=== PATIENT | female | born 1975 | race African-American/Black ===

== ENCOUNTER 2018-09-24 11:39 | Inpatient (IN) | payer OTHER ==
[~2018-09-24] VITALS: Ht 162.6 cm; Wt 87.1 kg
[~2018-09-24 11:39] MED LIST: FOLI0.4T2 PO; IRON-15 PO; PREN-142 PO
[2018-09-24] MEDS ORDERED: SODIUM CHLORIDE 0.9% 1,000 ML IV ONE (15:40)
[2018-09-24] MEDS ORDERED: KETOROLAC 30MG/ML VIAL IV STA (15:40)
[2018-09-24 17:01] LABS: BASOPHILS % 0.5 % (0.0-2.0); EOSINOPHILS % 0.5 % (0.0-5.0); HEMATOCRIT. 37.2 % (36.0-48.0); MEAN CORPUSCULAR HEMOGLOBIN 26.6 pg (28.0-32.0); MEAN CORPUSCULAR VOLUME 82.4 fL (81.0-99.0); MEAN PLATELET VOLUME 8.5 fl (7.4-10.4); MONOCYTES % 8.4 % (2.0-8.0); NEUTROPHILS % 57.6 % (40.0-76.0); PLATELET 349 x1000/uL (130-400); RED BLOOD CELL COUNT 4.51 mill/uL (4.2-5.4); RED CELL DISTRIBUTION WIDTH 14.3 % (11.6-14.6)
[2018-09-24 17:04] LABS: CHLORIDE 95 mEq/L (98-107)
[2018-09-24 17:18] LABS: PROTHROMBIN TIME 10.2 sec (9.1-11.1)
[2018-09-24] MEDS ORDERED: PIPERACILLIN/TAZOBACTAM 3.375GM/50ML PREMIX IV ONE (17:30)
[2018-09-24] MEDS ORDERED: VANCOMYCIN 1 G PREMIX 200 ML IV SCH (17:30)
[2018-09-24] MEDS ORDERED: PIPERACILLIN/TAZ 3.375G PREMIX 50 ML IV SCH ×2 (18:00→20:00)
[2018-09-24 19:52] LABS: BASOPHILS % 0.7 % (0.0-2.0); EOSINOPHILS % 0.5 % (0.0-5.0); HEMATOCRIT. 37.3 % (36.0-48.0); HEMOGLOBIN. 12.1 g/dL (12.0-16.0); LYMPHOCYTES % 33.3 % (20.0-50.0); MEAN CORPUSCULAR HEMOGLOBIN 26.7 pg (28.0-32.0); MEAN CORPUSCULAR VOLUME 82.1 fL (81.0-99.0); MONOCYTES % 8.2 % (2.0-8.0); NEUTROPHILS % 57.3 % (40.0-76.0); PLATELET 364 x1000/uL (130-400); RED BLOOD CELL COUNT 4.54 mill/uL (4.2-5.4); RED CELL DISTRIBUTION WIDTH 14.4 % (11.6-14.6)
[2018-09-24 20:00] VITALS: BP 150/92
[2018-09-24] MEDS ORDERED: IPRATROPIUM/ALBUTEROL 0.5-3(2.5)MG/3ML NEB INH PRN (20:00)
[2018-09-24] MEDS ORDERED: DOCUSATE SODIUM 100MG CAPSULE PO PRN (20:00)
[2018-09-24] MEDS ORDERED: MAGNESIUM/ALUMINUM HYDROXIDE/SIMETHICONE 30ML UDC PO PRN (20:00)
[2018-09-24] MEDS ORDERED: CLONIDINE 0.1MG TABLET PO PRN (20:00)
[2018-09-24 20:23] LABS: CHLORIDE 94 mEq/L (98-107)
[2018-09-24] MEDS ORDERED: INSULIN GLARGINE UD 100 UNITS/ML SYR SUBCUT SCH (22:00)
[2018-09-24 22:09] LABS: CLARITY URINE TURBID (CLEAR); COLOR URINE YELLOW (YELLOW); KETONES URINE NEGATIVE (NEGATIVE); LEUKOCYTE ESTERASE URINE 1+ (NEGATIVE); NITRITE URINE NEGATIVE (NEGATIVE); OCCULT BLOOD URINE 3+ (NEGATIVE); PROTEIN URINE TRACE (NEGATIVE); SPECIFIC GRAVITY URINE 1.045 (1.005-1.030); UROBILINOGEN URINE 0.2 E.U./dL (0.2-1.0)
[2018-09-24 22:25] LABS: *AMPHETAMINES SCREEN URINE NEGATIVE (NEGATIVE)
[2018-09-24 22:26] LABS: *BARBITURATES SCREEN URINE NEGATIVE (NEGATIVE); *BENZODIAZEPINES SCREEN URINE NEGATIVE (NEGATIVE); *COCAINE SCREEN URINE NEGATIVE (NEGATIVE); CANNABINOID URINE SCREEN NEGATIVE (NEGATIVE); METHADONE URINE SCREEN NEGATIVE (NEGATIVE); OPIATES URINE SCREEN NEGATIVE (NEGATIVE); PHENCYCLIDINE URINE SCREEN NEGATIVE (NEGATIVE)
[2018-09-24] MEDS ORDERED: DEXTROSE 50% WATER 50ML SYRINGE IV PRN (23:45)
[2018-09-25] VITALS: BP 150/92
[2018-09-25] MEDS: SODIUM CHLORIDE 0.9% 1,000 ML IV SCH ×2 (00:24→12:21)
[2018-09-25] MEDS ORDERED: INSULIN GLARGINE UD 100 UNITS/ML SYR SUBCUT SCH (01:00)
[2018-09-25] MEDS: PIPERACILLIN/TAZ 3.375G PREMIX 50 ML IV SCH ×3 (02:26→17:41)
[2018-09-25] MEDS: VANCOMYCIN 750 MG PREMIX 150 ML IV SCH ×3 (03:32→19:09)
[2018-09-25] MEDS: HYDROCODONE/ACETAMINOPHEN 5/325MG TABLET PO PRN ×3 (03:32→21:02)
[2018-09-25] MEDS: ONDANSETRON HCL 4MG/2ML INJ IV PRN (03:32)
[2018-09-25 04:00] VITALS: BP 118/75
[2018-09-25] MEDS: BLOOD SUGAR DIAGNOSTIC STRIP TEST SCH ×4 (06:24→21:02)
[2018-09-25] MEDS: INSULIN LISPRO 100 UNITS/ML SUBCUT SCH ×4 (06:38→21:28)
[2018-09-25 08:00] VITALS: BP 105/63
[2018-09-25] MEDS: ENOXAPARIN 40MG/0.4ML SYR SUBCUT SCH (09:02)
[2018-09-25] MEDS ORDERED: LIDOCAINE HCL 1% 20ML VIAL (Pyxis) INJ INFIL SCH (09:30)
[2018-09-25] MEDS ORDERED: LIDOCAINE HCL 1% 20ML VIAL (Pyxis) INJ ONE (11:59)
[2018-09-25 12:00] VITALS: BP 91/60
[2018-09-25 16:00] VITALS: BP 106/73
[2018-09-25] MEDS ORDERED: ACETAMINOPHEN 325MG TABLET PO PRN (17:15)
[2018-09-25 20:00] VITALS: BP 96/56
[2018-09-25] MEDS: INSULIN GLARGINE UD 100 UNITS/ML SYR SUBCUT SCH (21:28)
[2018-09-26] VITALS: BP 99/63
[2018-09-26] MEDS: PIPERACILLIN/TAZ 3.375G PREMIX 50 ML IV SCH ×3 (02:37→18:07)
[2018-09-26] MEDS: VANCOMYCIN 750 MG PREMIX 150 ML IV SCH ×2 (03:29→11:31)
[2018-09-26 04:00] VITALS: BP 100/66
[2018-09-26] MEDS: BLOOD SUGAR DIAGNOSTIC STRIP TEST SCH ×4 (06:24→21:31)
[2018-09-26] MEDS: INSULIN LISPRO 100 UNITS/ML SUBCUT SCH ×4 (06:53→21:36)
[2018-09-26 07:45] LABS: BASOPHILS % 0.4 % (0.0-2.0); EOSINOPHILS % 0.8 % (0.0-5.0); HEMATOCRIT. 32.6 % (36.0-48.0); HEMOGLOBIN. 10.6 g/dL (12.0-16.0); LYMPHOCYTES % 40.4 % (20.0-50.0); MEAN CORPUSCULAR HEMOGLOBIN 26.6 pg (28.0-32.0); MEAN CORPUSCULAR VOLUME 81.7 fL (81.0-99.0); MEAN PLATELET VOLUME 8.3 fl (7.4-10.4); MONOCYTES % 7.3 % (2.0-8.0); NEUTROPHILS % 51.1 % (40.0-76.0); PLATELET 290 x1000/uL (130-400); RED CELL DISTRIBUTION WIDTH 14.4 % (11.6-14.6)
[2018-09-26 08:00] VITALS: BP 138/92
[2018-09-26 08:26] LABS: CHLORIDE 99 mEq/L (98-107)
[2018-09-26] MEDS: ENOXAPARIN 40MG/0.4ML SYR SUBCUT SCH (08:36)
[2018-09-26] MEDS: INSULIN GLARGINE UD 100 UNITS/ML SYR SUBCUT SCH ×2 (10:00→21:35)
[2018-09-26 12:00] VITALS: BP 102/72
[2018-09-26] MEDS ORDERED: GENTAMICIN SULF 40MG/ML 2ML VIAL ONE (14:19)
[2018-09-26] MEDS: SODIUM CHLORIDE 0.9% 1,000 ML IV SCH (14:19)
[2018-09-26] MEDS ORDERED: BACITRACIN 15GM TUBE TOP ONE (14:19)
[2018-09-26] MEDS ORDERED: LIDOCAINE HCL 1% 20ML VIAL (Pyxis) INJ ONE (14:19)
[2018-09-26] MEDS ORDERED: BUPIVACAINE HCL/PF 0.25% (2.5MG/ML) 10ML ONE (14:20)
[2018-09-26] MEDS ORDERED: BACITRACIN 50,000 UNITS/VIAL ONE (14:20)
[2018-09-26] MEDS ORDERED: NORMAL SALINE 0.9% 10 ML SYR ONE (14:20)
[2018-09-26 16:00] VITALS: BP 99/59
[2018-09-26] MEDS: HYDROCODONE/ACETAMINOPHEN 5/325MG TABLET PO PRN (16:26)
[2018-09-26 20:00] VITALS: BP 119/83
[2018-09-26] MEDS ORDERED: VANCOMYCIN 1250MG in DEXTROSE 5% WATER 250ML IV SCH (20:00)
[2018-09-27] VITALS: BP 120/81
[2018-09-27] MEDS: SODIUM CHLORIDE 0.9% 1,000 ML IV SCH ×2 (02:59→14:35)
[2018-09-27] MEDS: HYDROCODONE/ACETAMINOPHEN 5/325MG TABLET PO PRN ×2 (03:00→16:46)
[2018-09-27] MEDS: PIPERACILLIN/TAZ 3.375G PREMIX 50 ML IV SCH ×3 (03:00→17:29)
[2018-09-27 04:00] VITALS: BP 133/83
[2018-09-27] MEDS: VANCOMYCIN 1250MG in DEXTROSE 5% WATER 250ML IV SCH ×3 (06:13→21:21)
[2018-09-27] MEDS: BLOOD SUGAR DIAGNOSTIC STRIP TEST SCH ×4 (06:14→20:14)
[2018-09-27 06:29] LABS: BASOPHILS % 0.5 % (0.0-2.0); EOSINOPHILS % 1.2 % (0.0-5.0); HEMATOCRIT. 31.1 % (36.0-48.0); HEMOGLOBIN. 10.1 g/dL (12.0-16.0); LYMPHOCYTES % 36.4 % (20.0-50.0); MEAN CORPUSCULAR HEMOGLOBIN 26.7 pg (28.0-32.0); MEAN CORPUSCULAR VOLUME 81.9 fL (81.0-99.0); MEAN PLATELET VOLUME 8.4 fl (7.4-10.4); MONOCYTES % 8.7 % (2.0-8.0); NEUTROPHILS % 53.2 % (40.0-76.0); PLATELET 260 x1000/uL (130-400); RED CELL DISTRIBUTION WIDTH 14.3 % (11.6-14.6)
[2018-09-27] MEDS: INSULIN LISPRO 100 UNITS/ML SUBCUT SCH ×4 (06:44→20:18)
[2018-09-27 06:57] LABS: CHLORIDE 99 mEq/L (98-107)
[2018-09-27 08:00] VITALS: BP 109/77
[2018-09-27] MEDS: ENOXAPARIN 40MG/0.4ML SYR SUBCUT SCH (08:29)
[2018-09-27] MEDS: INSULIN GLARGINE UD 100 UNITS/ML SYR SUBCUT SCH ×2 (09:26→21:16)
[2018-09-27] MEDS: ONDANSETRON HCL 4MG/2ML INJ IV PRN ×2 (11:03→20:06)
[2018-09-27 12:00] VITALS: BP 114/78
[2018-09-27 16:00] VITALS: BP 125/86
[2018-09-27 20:00] VITALS: BP 117/78
[2018-09-28] VITALS: BP 107/70
[2018-09-28] MEDS: HYDROCODONE/ACETAMINOPHEN 5/325MG TABLET PO PRN ×2 (01:17→21:14)
[2018-09-28] MEDS: PIPERACILLIN/TAZ 3.375G PREMIX 50 ML IV SCH ×2 (02:09→09:20)
[2018-09-28] MEDS: SODIUM CHLORIDE 0.9% 1,000 ML IV SCH ×2 (03:44→16:40)
[2018-09-28 04:00] VITALS: BP 109/75
[2018-09-28] MEDS: VANCOMYCIN 1250MG in DEXTROSE 5% WATER 250ML IV SCH ×2 (05:34→13:05)
[2018-09-28] MEDS: BLOOD SUGAR DIAGNOSTIC STRIP TEST SCH ×4 (06:28→20:43)
[2018-09-28] MEDS: INSULIN LISPRO 100 UNITS/ML SUBCUT SCH ×5 (06:56→20:43)
[2018-09-28 07:00] VITALS: BP 112/75
[2018-09-28 09:08] LABS: CHLORIDE 99 mEq/L (98-107)
[2018-09-28] MEDS: ONDANSETRON HCL 4MG/2ML INJ IV PRN (09:20)
[2018-09-28] MEDS: ENOXAPARIN 40MG/0.4ML SYR SUBCUT SCH (09:21)
[2018-09-28] MEDS: INSULIN GLARGINE UD 100 UNITS/ML SYR SUBCUT SCH ×2 (09:28→21:05)
[2018-09-28 12:00] VITALS: BP 137/95
[2018-09-28 16:00] VITALS: BP_SYST 123; BP_SYST 139; BP_DIAS 80; BP_DIAS 95
[2018-09-28 20:00] VITALS: BP 119/79
[2018-09-29] VITALS: BP 114/64
[2018-09-29 04:00] VITALS: BP 134/85
[2018-09-29] MEDS: SODIUM CHLORIDE 0.9% 1,000 ML IV SCH ×2 (04:44→17:37)
[2018-09-29] MEDS: BLOOD SUGAR DIAGNOSTIC STRIP TEST SCH ×4 (06:53→20:49)
[2018-09-29] MEDS: INSULIN LISPRO 100 UNITS/ML SUBCUT SCH ×7 (06:55→20:49)
[2018-09-29] MEDS: GLIPIZIDE 10MG TABLET PO SCH (06:56)
[2018-09-29 08:00] VITALS: BP 120/78
[2018-09-29] MEDS: ENOXAPARIN 40MG/0.4ML SYR SUBCUT SCH (08:50)
[2018-09-29] MEDS: CEFTRIAXONE 2 G in DEXTROSE 5% WATER 50 ML IV SCH (09:05)
[2018-09-29] MEDS: INSULIN GLARGINE UD 100 UNITS/ML SYR SUBCUT SCH ×2 (10:15→21:59)
[2018-09-29 12:00] VITALS: BP 128/81
[2018-09-29] MEDS ORDERED: LANTUSUD SUBCUT (12:49)
[2018-09-29] MEDS ORDERED: GLIP10TA10 PO (12:49)
[2018-09-29] MEDS ORDERED: METF-414 MT (12:55)
[2018-09-29] MEDS ORDERED: INSLIS SUBCUT (12:55)
[2018-09-29 16:00] VITALS: BP 125/78
[2018-09-29 20:00] VITALS: BP 142/94
[2018-09-29] MEDS: ASCORBIC ACID 250 MG TABLET PO SCH (20:40)
[2018-09-30] VITALS: BP 142/77
[2018-09-30 04:00] VITALS: BP 141/56
[2018-09-30] MEDS: GLIPIZIDE 10MG TABLET PO SCH (06:26)
[2018-09-30] MEDS: SODIUM CHLORIDE 0.9% 1,000 ML IV SCH ×2 (06:26→17:30)
[2018-09-30] MEDS: BLOOD SUGAR DIAGNOSTIC STRIP TEST SCH ×4 (06:28→21:06)
[2018-09-30] MEDS: INSULIN LISPRO 100 UNITS/ML SUBCUT SCH ×7 (06:36→21:00)
[2018-09-30 07:42] LABS: BASOPHILS % 0.5 % (0.0-2.0); EOSINOPHILS % 0.7 % (0.0-5.0); HEMATOCRIT. 32.1 % (36.0-48.0); HEMOGLOBIN. 10.2 g/dL (12.0-16.0); LYMPHOCYTES % 21.4 % (20.0-50.0); MEAN CORPUSCULAR HEMOGLOBIN 26.1 pg (28.0-32.0); MEAN PLATELET VOLUME 8.1 fl (7.4-10.4); MONOCYTES % 8.1 % (2.0-8.0); NEUTROPHILS % 69.3 % (40.0-76.0); PLATELET 263 x1000/uL (130-400); RED BLOOD CELL COUNT 3.92 mill/uL (4.2-5.4); RED CELL DISTRIBUTION WIDTH 14.1 % (11.6-14.6)
[2018-09-30 08:00] VITALS: BP 153/89
[2018-09-30 08:13] LABS: CHLORIDE 106 mEq/L (98-107)
[2018-09-30] MEDS: CEFTRIAXONE 2 G in DEXTROSE 5% WATER 50 ML IV SCH (09:07)
[2018-09-30] MEDS: MULTIVITAMINS,THER W-MINERALS TABLET PO SCH (09:08)
[2018-09-30] MEDS: ZINC SULFATE 220 MG ( 50 ) CAPSULE PO SCH (09:08)
[2018-09-30] MEDS: ENOXAPARIN 40MG/0.4ML SYR SUBCUT SCH (09:08)
[2018-09-30] MEDS: ASCORBIC ACID 250 MG TABLET PO SCH ×2 (09:08→21:02)
[2018-09-30] MEDS: INSULIN GLARGINE UD 100 UNITS/ML SYR SUBCUT SCH ×2 (09:17→22:00)
[2018-09-30 12:00] VITALS: BP 135/87
[2018-09-30] MEDS: ACETAMINOPHEN 325MG TABLET PO PRN (15:32)
[2018-09-30 16:00] VITALS: BP 140/89
[2018-09-30 20:00] VITALS: BP 133/79
[2018-10-01] VITALS: BP 130/87
[2018-10-01] MEDS: SODIUM CHLORIDE 0.9% 1,000 ML IV SCH ×2 (00:31→18:30)
[2018-10-01 04:00] VITALS: BP 136/89
[2018-10-01] MEDS: GLIPIZIDE 10MG TABLET PO SCH (06:36)
[2018-10-01 07:06] LABS: BASOPHILS % 0.5 % (0.0-2.0); EOSINOPHILS % 1.1 % (0.0-5.0); HEMATOCRIT. 30.5 % (36.0-48.0); HEMOGLOBIN. 10.2 g/dL (12.0-16.0); LYMPHOCYTES % 29.2 % (20.0-50.0); MEAN CORPUSCULAR HEMOGLOBIN 27.1 pg (28.0-32.0); MEAN CORPUSCULAR VOLUME 80.8 fL (81.0-99.0); MEAN PLATELET VOLUME 7.9 fl (7.4-10.4); MONOCYTES % 7.4 % (2.0-8.0); NEUTROPHILS % 61.8 % (40.0-76.0); PLATELET 288 x1000/uL (130-400); RED BLOOD CELL COUNT 3.77 mill/uL (4.2-5.4); RED CELL DISTRIBUTION WIDTH 14.1 % (11.6-14.6)
[2018-10-01 07:11] LABS: CHLORIDE 108 mEq/L (98-107)
[2018-10-01] MEDS: BLOOD SUGAR DIAGNOSTIC STRIP TEST SCH ×4 (07:20→21:39)
[2018-10-01] MEDS: INSULIN LISPRO 100 UNITS/ML SUBCUT SCH ×7 (07:20→21:55)
[2018-10-01 08:00] VITALS: BP 138/90
[2018-10-01] MEDS: ASCORBIC ACID 250 MG TABLET PO SCH ×2 (08:23→21:39)
[2018-10-01] MEDS: MULTIVITAMINS,THER W-MINERALS TABLET PO SCH (08:23)
[2018-10-01] MEDS: ZINC SULFATE 220 MG ( 50 ) CAPSULE PO SCH (08:23)
[2018-10-01] MEDS: ENOXAPARIN 40MG/0.4ML SYR SUBCUT SCH (08:25)
[2018-10-01] MEDS: CEFTRIAXONE 2 G in DEXTROSE 5% WATER 50 ML IV SCH (08:25)
[2018-10-01] MEDS: INSULIN GLARGINE UD 100 UNITS/ML SYR SUBCUT SCH ×2 (10:00→21:54)
[2018-10-01 12:00] VITALS: BP 98/52
[2018-10-01 16:00] VITALS: BP 138/84
[2018-10-01 20:00] VITALS: BP 112/73
[2018-10-02] VITALS: BP 135/87
[2018-10-02 04:00] VITALS: BP 147/86
[2018-10-02] MEDS: SODIUM CHLORIDE 0.9% 1,000 ML IV SCH ×2 (06:04→18:41)
[2018-10-02] MEDS: GLIPIZIDE 10MG TABLET PO SCH (06:04)
[2018-10-02] MEDS: BLOOD SUGAR DIAGNOSTIC STRIP TEST SCH ×4 (06:04→21:01)
[2018-10-02 08:00] VITALS: BP 149/89
[2018-10-02] MEDS: ZINC SULFATE 220 MG ( 50 ) CAPSULE PO SCH (08:29)
[2018-10-02] MEDS: MULTIVITAMINS,THER W-MINERALS TABLET PO SCH (08:29)
[2018-10-02] MEDS: ASCORBIC ACID 250 MG TABLET PO SCH ×2 (08:30→21:01)
[2018-10-02] MEDS: CEFTRIAXONE 2 G in DEXTROSE 5% WATER 50 ML IV SCH (08:30)
[2018-10-02] MEDS: ENOXAPARIN 40MG/0.4ML SYR SUBCUT SCH (08:30)
[2018-10-02] MEDS: INSULIN LISPRO 100 UNITS/ML SUBCUT SCH ×7 (08:37→21:36)
[2018-10-02] MEDS: ACETAMINOPHEN 325MG TABLET PO PRN (08:53)
[2018-10-02] MEDS: INSULIN GLARGINE UD 100 UNITS/ML SYR SUBCUT SCH ×2 (10:32→21:36)
[2018-10-02 12:00] VITALS: BP 145/93
[2018-10-02 16:00] VITALS: BP 145/93
[2018-10-02 20:00] VITALS: BP 128/93
[2018-10-03] VITALS: BP 103/65
[2018-10-03 04:00] VITALS: BP 110/66
[2018-10-03 06:04] LABS: BASOPHILS % 0.6 % (0.0-2.0); EOSINOPHILS % 1.4 % (0.0-5.0); HEMATOCRIT. 30.8 % (36.0-48.0); LYMPHOCYTES % 30.6 % (20.0-50.0); MEAN CORPUSCULAR HEMOGLOBIN 26.4 pg (28.0-32.0); MEAN CORPUSCULAR VOLUME 81.5 fL (81.0-99.0); MONOCYTES % 6.8 % (2.0-8.0); NEUTROPHILS % 60.6 % (40.0-76.0); PLATELET 301 x1000/uL (130-400); RED BLOOD CELL COUNT 3.78 mill/uL (4.2-5.4); RED CELL DISTRIBUTION WIDTH 14.1 % (11.6-14.6)
[2018-10-03] MEDS: GLIPIZIDE 10MG TABLET PO SCH (06:54)
[2018-10-03] MEDS: BLOOD SUGAR DIAGNOSTIC STRIP TEST SCH ×4 (06:54→21:20)
[2018-10-03] MEDS: INSULIN LISPRO 100 UNITS/ML SUBCUT SCH ×8 (06:57→21:32)
[2018-10-03 07:59] VITALS: BP 131/81
[2018-10-03 07:59] LABS: CHLORIDE 103 mEq/L (98-107)
[2018-10-03] MEDS: CEFTRIAXONE 2 G in DEXTROSE 5% WATER 50 ML IV SCH (08:44)
[2018-10-03] MEDS: ZINC SULFATE 220 MG ( 50 ) CAPSULE PO SCH (08:44)
[2018-10-03] MEDS: MULTIVITAMINS,THER W-MINERALS TABLET PO SCH (08:44)
[2018-10-03] MEDS: ASCORBIC ACID 250 MG TABLET PO SCH ×2 (08:44→21:27)
[2018-10-03] MEDS: ACETAMINOPHEN 325MG TABLET PO PRN ×2 (08:46→18:51)
[2018-10-03] MEDS: ENOXAPARIN 40MG/0.4ML SYR SUBCUT SCH (08:46)
[2018-10-03] MEDS: SODIUM CHLORIDE 0.9% 1,000 ML IV SCH ×2 (08:48→20:30)
[2018-10-03] MEDS: INSULIN GLARGINE UD 100 UNITS/ML SYR SUBCUT SCH ×2 (10:33→21:32)
[2018-10-03 12:00] VITALS: BP 137/69
[2018-10-03 16:00] VITALS: BP 137/84
[2018-10-03 20:00] VITALS: BP 126/75
[2018-10-04] VITALS: BP 127/87
[2018-10-04 04:00] VITALS: BP 122/78
[2018-10-04] MEDS: GLIPIZIDE 10MG TABLET PO SCH (06:28)
[2018-10-04] MEDS: BLOOD SUGAR DIAGNOSTIC STRIP TEST SCH ×4 (06:34→21:58)
[2018-10-04] MEDS: INSULIN LISPRO 100 UNITS/ML SUBCUT SCH ×7 (06:34→21:00)
[2018-10-04 08:00] VITALS: BP 106/74
[2018-10-04] MEDS: MULTIVITAMINS,THER W-MINERALS TABLET PO SCH (09:01)
[2018-10-04] MEDS: CEFTRIAXONE 2 G in DEXTROSE 5% WATER 50 ML IV SCH (09:01)
[2018-10-04] MEDS: ASCORBIC ACID 250 MG TABLET PO SCH ×2 (09:01→20:18)
[2018-10-04] MEDS: SODIUM CHLORIDE 0.9% 1,000 ML IV SCH ×2 (09:01→21:58)
[2018-10-04] MEDS: ZINC SULFATE 220 MG ( 50 ) CAPSULE PO SCH (09:01)
[2018-10-04] MEDS: ENOXAPARIN 40MG/0.4ML SYR SUBCUT SCH (09:03)
[2018-10-04] MEDS: INSULIN GLARGINE UD 100 UNITS/ML SYR SUBCUT SCH ×2 (10:46→22:02)
[2018-10-04 12:00] VITALS: BP 128/83
[2018-10-04 16:00] VITALS: BP 132/75
[2018-10-04 20:00] VITALS: BP 122/91
[2018-10-04] MEDS: ACETAMINOPHEN 325MG TABLET PO PRN (20:17)
[2018-10-05] VITALS: BP 91/56
[2018-10-05 04:00] VITALS: BP 121/75
[2018-10-05] MEDS: GLIPIZIDE 10MG TABLET PO SCH (06:44)
[2018-10-05] MEDS: INSULIN LISPRO 100 UNITS/ML SUBCUT SCH ×6 (06:55→18:05)
[2018-10-05] MEDS: BLOOD SUGAR DIAGNOSTIC STRIP TEST SCH ×4 (06:58→21:00)
[2018-10-05 08:00] VITALS: BP 113/81
[2018-10-05] MEDS: ZINC SULFATE 220 MG ( 50 ) CAPSULE PO SCH (08:36)
[2018-10-05] MEDS: ASCORBIC ACID 250 MG TABLET PO SCH ×2 (08:36→23:08)
[2018-10-05] MEDS: MULTIVITAMINS,THER W-MINERALS TABLET PO SCH (08:36)
[2018-10-05] MEDS: ENOXAPARIN 40MG/0.4ML SYR SUBCUT SCH (08:37)
[2018-10-05] MEDS: ACETAMINOPHEN 325MG TABLET PO PRN ×2 (08:43→23:08)
[2018-10-05] MEDS: CEFTRIAXONE 2 G in DEXTROSE 5% WATER 50 ML IV SCH ×2 (09:00→12:39)
[2018-10-05] MEDS: SODIUM CHLORIDE 0.9% 1,000 ML IV SCH ×2 (10:00→12:40)
[2018-10-05] MEDS: INSULIN GLARGINE UD 100 UNITS/ML SYR SUBCUT SCH (11:40)
[2018-10-05 12:00] VITALS: BP 116/62
[2018-10-05 16:00] VITALS: BP 125/84
[2018-10-05 20:00] VITALS: BP 119/66
[2018-10-06] VITALS: BP 120/80
[2018-10-06] MEDS: INSULIN GLARGINE UD 100 UNITS/ML SYR SUBCUT SCH ×2 (01:01→10:53)
[2018-10-06] MEDS: INSULIN LISPRO 100 UNITS/ML SUBCUT SCH ×7 (01:01→17:48)
[2018-10-06 04:00] VITALS: BP 118/77
[2018-10-06] MEDS: SODIUM CHLORIDE 0.9% 1,000 ML IV SCH ×2 (06:49→11:02)
[2018-10-06] MEDS: GLIPIZIDE 10MG TABLET PO SCH (06:49)
[2018-10-06] MEDS: BLOOD SUGAR DIAGNOSTIC STRIP TEST SCH ×3 (06:49→17:20)
[2018-10-06 08:00] VITALS: BP 142/93
[2018-10-06] MEDS: MULTIVITAMINS,THER W-MINERALS TABLET PO SCH (09:26)
[2018-10-06] MEDS: ZINC SULFATE 220 MG ( 50 ) CAPSULE PO SCH (09:26)
[2018-10-06] MEDS: ENOXAPARIN 40MG/0.4ML SYR SUBCUT SCH (09:27)
[2018-10-06] MEDS: ASCORBIC ACID 250 MG TABLET PO SCH (09:27)
[2018-10-06] MEDS: ACETAMINOPHEN 325MG TABLET PO PRN (10:56)
[2018-10-06 12:00] VITALS: BP 101/68
[2018-10-06 16:00] VITALS: BP 107/50
[2018-10-06 17:59] VITALS: BP 107/50
== END 2018-10-06 20:00 | disposition home health service (06) | DRG 317 ==
LOC: ER 11:49 → 6EST 17:29 → EDBEDREQ 17:42 → EDBEDREQTM 17:42 → ENRESERV 19:43
PROVIDERS: ADMIT Internal Medicine; ATTEND Internal Medicine
PROC: 0J9R0ZZ Drainage of Left Foot Subcutaneous Tissue and Fascia, Open Approach (ICD-10-PCS; principal; 2018-09-25)
PROC: 02HV33Z Insertion of Infusion Device into Superior Vena Cava, Percutaneous Approach (ICD-10-PCS; 2018-09-25)
PROC: B5181ZA Fluoroscopy of Superior Vena Cava using Low Osmolar Contrast, Guidance (ICD-10-PCS; 2018-09-25)
PROC: B548ZZA Ultrasonography of Superior Vena Cava, Guidance (ICD-10-PCS; 2018-09-25)
DX: E11.69 Type 2 diabetes mellitus with other specified complication (principal); M86.172 Other acute osteomyelitis, left ankle and foot; E44.0 Moderate protein-calorie malnutrition; E87.8 Other disorders of electrolyte and fluid balance, not elsewhere classified; E11.65 Type 2 diabetes mellitus with hyperglycemia; E87.1 Hypo-osmolality and hyponatremia; M84.478A Pathological fracture, left toe(s), initial encounter for fracture; L02.612 Cutaneous abscess of left foot; E66.9 Obesity, unspecified; N39.0 Urinary tract infection, site not specified; B96.89 Other specified bacterial agents as the cause of diseases classified elsewhere; Z79.4 Long term (current) use of insulin; Z79.899 Other long term (current) drug therapy; Z82.49 Family history of ischemic heart disease and other diseases of the circulatory system; Z68.33 Body mass index [BMI] 33.0-33.9, adult
CPT/HCPCS: 36415; 36569; 71045; 73620; 76937; 77001; 80048; 80061; 80202; 80305; 82962; 83036; 84443; 86140; 87070; 87077; 93005; 93923; 93970; 96365; 96366; 96368; 97022; 97161; 99285; C1725; C1769; J0696; J1580; J1650; J1815; J1885; J2405; J2543; J3370; J3490; J7030; J7060